=== PATIENT | female | born 1945 | race Two or more races ===

== ENCOUNTER 2018-04-25 18:27 | Emergency (ER) | payer OTHER ==
[~2018-04-25] VITALS: Ht 157.5 cm; Wt 86.6 kg
[2018-04-25] MEDS ORDERED: TDAP [DIPH/PERTUSSIS/TET] 0.5 ML VIAL IM ONE ×2 (19:00→19:13)
[2018-04-25] MEDS ORDERED: IBUPROFEN 600 MG TABLET PO ONE ×2 (19:00→19:13)
--- NOTE | 2018-04-25 19:11 | NUR ---
[facility]GA w/PEDRITO Sung
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
--- NOTE | 2018-04-25 19:17 | NUR ---
INITIATED IV LINE RIGHT HAND 20G. INTACT AND PATENT. LABS DRAWN FROM SITE. RESIDENTIAL APPRAISER AT BEDSIDE FOR COLLECTION.
--- NOTE | 2018-04-25 19:25 | NUR ---
PT BROUGHT BY RADIOLOGY FOR CT AND XRAY
[2018-04-25 19:27] LABS: BASOPHILS # (AUTO) 0.1 /CMM (0.0-0.2); BASOPHILS % (AUTO) 0.5 % (0.0-2.0); EOSINOPHILS % (AUTO) 2.1 % (0.0-6.0); HEMATOCRIT 44 % (33-45); HEMOGLOBIN 14.9 g/dL (11.5-14.8); LYMPHOCYTES % (AUTO) 37.5 % (20.0-44.0); MEAN CORPUSCULAR HGB CONC 34 g/dl (31.0-36.0); MEAN CORPUSCULAR VOLUME 91 fL (82-100); MONOCYTES # (AUTO) 0.6 /CMM (0.1-1.30); MONOCYTES % (AUTO) 5.8 % (2.0-12.0); NEUTROPHILS # (AUTO) 5.7 /CMM (1.8-8.9); NEUTROPHILS % (AUTO) 54.1 % (43.0-81.0); PLATELET COUNT (AUTO) 173 /CMM (150-450); RDW COEFFICIENT OF VARIATION 12.3 (11.5-15.0); RED BLOOD CELL COUNT(AUTO) 4.79 MIL/uL (4.0-5.2); WHITE BLOOD COUNT (AUTO) 10.6 K/uL (4.3-11.0)
[2018-04-25 19:44] LABS: CALCIUM, SERUM 8.9 mg/dL (8.5-10.1); CARBON DIOXIDE 28 mmol/L (21-32); CHLORIDE 100 mmol/L (98-107); CREATININE 0.7 mg/dL (0.6-1.3); GLUCOSE 236 mg/dL (74-106); SODIUM SERUM 132 mmol/L (136-145); UREA NITROGEN, BLOOD 16 mg/dL (7-18)
--- NOTE | 2018-04-25 19:46 | NUR ---
PT BROUGHT BACK FROM RADIOLOGY
[2018-04-25 19:51] LABS: INR 1.01 (0.85-1.15)
[2018-04-25 19:52] LABS: TROPONIN I < 0.017 ng/mL (0.00-0.056)
--- NOTE | 2018-04-25 21:07 | NUR ---
Patient discharged to home in stable condition. Written and verbal after care instructions given. Patient verbalizes understanding of instruction. Pt ambulatory with a steady gait. Pt left with daughter. IV removed. Catheter intact and site benign. Pressure and 4x4 applied to site. No bleeding noted.
[2018-04-25 21:08] VITALS: BP 156/69
== END 2018-04-25 21:10 | disposition home or self-care (01) ==
LOC: ER 18:30
DX: S80.02XA Contusion of left knee, initial encounter (principal); S00.83XA Contusion of other part of head, initial encounter; E11.65 Type 2 diabetes mellitus with hyperglycemia; R03.0 Elevated blood-pressure reading, without diagnosis of hypertension; E66.01 Morbid (severe) obesity due to excess calories; I51.7 Cardiomegaly; Z68.34 Body mass index [BMI] 34.0-34.9, adult; W10.8XXA Fall (on) (from) other stairs and steps, initial encounter; Y93.89 Activity, other specified; Y92.811 Bus as the place of occurrence of the external cause; Y99.8 Other external cause status
CPT/HCPCS: 36415; 70450-TC; 70486-TC; 72131-TC; 73564-TC; 80048-TC; 84484-TC; 85025-TC; 85730-TC; 90715; A4606; Z7610